=== PATIENT | male | born 1950 | race Caucasian/White ===

== ENCOUNTER 2019-02-13 11:46 | Emergency (ER) | payer OTHER ==
[2019-02-13] MEDS ORDERED: ENT KIT ONE (11:50)
[2019-02-13] MEDS ORDERED: TRANEXAMIC AC 1000 MG/10ML SDV ONE (11:50)
--- NOTE | 2019-02-13 11:51 | ER Report ---
History and Physical Time Seen By MD: 11:51 HPI/ROS CHIEF COMPLAINT: Epistaxis HISTORY OF PRESENT ILLNESS: 68-year-old male patient presents to emergency room with complaint of nosebleed. Patient states he's been getting nosebleeds every day for the past week. He states they've been getting progressively worse. He states that today he started at 8:30. He states that he went to urgent care. Initially they cauterized it. At that time he left and then start bleeding again, however seem be bleeding from both sides that time. Initially had just been bleeding from the right side. Patient denies any fevers, chills, nausea, vomiting or diarrhea. Patient states he has not felt well for the past month. States he's had low appetite, low energy. Patient denies having any cough, shortness of breath. He states he has had significant headaches. REVIEW OF SYSTEMS: Respiratory: No cough, no dyspnea. Cardiovascular: No chest pain, no palpitations. Gastrointestinal: No vomiting, no abdominal pain. Musculoskeletal: No back pain. Allergies: Coded Allergies: No Known Drug Allergies (Unverified , 02/13/19) Home Meds Active Scripts Amoxicillin/Pot Clav 875-125 Mg Tab (AUGMENTIN 875-125 TABLET) 1 Each Tablet, 1 TAB PO Q12H, #14 TAB Prov:NUVIA PARKERSSTena NG 02/13/19 Reported Medications Levothyroxine Sodium (LEVOTHYROXINE SODIUM) 50 Mcg Tablet, 50 MCG PO QDAY, TAB 02/13/19 Past Medical/Surgical History Patient has a past medical history of hyperlipidemia, nosebleeds, hypothyroidism. Patient denies any surgical history. Reviewed Nurses Notes: Yes Constitutional Vital Sign - Last 24 Hours 02/13/19 02/13/19 11:50 15:10 Temp 97.9 Pulse 51 82 Resp 16 16 B/P (MAP) 152/98 140/82 (101) Pulse Ox 94 92 O2 Delivery Room Air Room Air Physical Exam General Appearance: The patient is alert, has no immediate need for airway protection and no current signs of toxicity. ENT: Patient does have bilateral Rhino Rocket in place. There is no bleeding at this time. The posterior pharynx there is no obvious bleeding noted. Respiratory: Chest is non tender, lungs are clear to auscultation. Cardiac: regular rate and rhythm Gastrointestinal: Abdomen is soft and non tender, no masses, bowel sounds normal. Musculoskeletal: Neck: Neck is supple and non tender. Extremities have full range of motion and are non tender. Skin: No rashes or lesions. DIFFERENTIAL DIAGNOSIS: After history and physical exam differential diagnosis was considered for epistaxis Medical Decision Making Data Points Result Diagram: 02/13/19 1215 02/13/19 1215 Laboratory Hematology Test 02/13/19 12:15 Red Blood Count 5.49 M/uL (4.00-5.60) Mean Corpuscular Volume 86.6 fL (80.0-96.0) Mean Corpuscular Hemoglobin 29.4 pg (26.0-33.0) Mean Corpuscular Hemoglobin Concent 33.9 g/dL (32.0-36.0) Red Cell Distribution Width 12.9 % (11.5-14.5) Mean Platelet Volume 7.4 fL (7.2-11.1) Neutrophils (%) (Auto) 62.4 % (39.4-72.5) Lymphocytes (%) (Auto) 25.7 % (17.6-49.6) Monocytes (%) (Auto) 7.5 % (4.1-12.4) Eosinophils (%) (Auto) 3.3 % (0.4-6.7) Basophils (%) (Auto) 1.1 % (0.3-1.4) Nucleated RBC Relative Count (auto) 0.0 /100WBC Neutrophils # (Auto) 4.7 K/uL (2.0-7.4) Lymphocytes # (Auto) 1.9 K/uL (1.3-3.6) Monocytes # (Auto) 0.6 K/uL (0.3-1.0) Eosinophils # (Auto) 0.2 K/uL (0.0-0.5) Basophils # (Auto) 0.1 K/uL (0.0-0.1) Nucleated RBC Absolute Count (auto) 0.00 K/uL Prothrombin Time 12.5 seconds (12.0-14.4) Prothromb Time International Ratio 0.94 Activated Partial Thromboplast Time 31 seconds (23-35) Sodium Level 139 mmol/L (137-145) Potassium Level 4.3 mmol/L (3.5-5.0) Chloride Level 107 mmol/L (98-107) Carbon Dioxide Level 22 mmol/L (22-30) Blood Urea Nitrogen 25 mg/dl (9-21) Creatinine 1.10 mg/dl (0.66-1.25) Glomerular Filtration Rate Calc > 60.0 Random Glucose 104 mg/dl (75-110) Calcium Level 9.5 mg/dl (8.4-10.2) Total Bilirubin 0.5 mg/dl (0.2-1.3) Aspartate Amino Transf (AST/SGOT) 38 U/L (0-35) Alanine Aminotransferase (ALT/SGPT) 23 U/L (0-56) Alkaline Phosphatase 52 U/L (0-126) Total Protein 7.1 g/dl (6.3-8.2) Albumin 4.4 g/dl (3.5-5.0) Chemistry Test 02/13/19 12:15 White Blood Count 7.5 k/uL (4.5-11.0) Red Blood Count 5.49 M/uL (4.00-5.60) Hemoglobin 16.1 g/dL (14.0-18.0) Hematocrit 47.6 % (42.0-52.0) Mean Corpuscular Volume 86.6 fL (80.0-96.0) Mean Corpuscular Hemoglobin 29.4 pg (26.0-33.0) Mean Corpuscular Hemoglobin Concent 33.9 g/dL (32.0-36.0) Red Cell Distribution Width 12.9 % (11.5-14.5) Platelet Count 263 K/uL (150-450) Mean Platelet Volume 7.4 fL (7.2-11.1) Neutrophils (%) (Auto) 62.4 % (39.4-72.5) Lymphocytes (%) (Auto) 25.7 % (17.6-49.6) Monocytes (%) (Auto) 7.5 % (4.1-12.4) Eosinophils (%) (Auto) 3.3 % (0.4-6.7) Basophils (%) (Auto) 1.1 % (0.3-1.4) Nucleated RBC Relative Count (auto) 0.0 /100WBC Neutrophils # (Auto) 4.7 K/uL (2.0-7.4) Lymphocytes # (Auto) 1.9 K/uL (1.3-3.6) Monocytes # (Auto) 0.6 K/uL (0.3-1.0) Eosinophils # (Auto) 0.2 K/uL (0.0-0.5) Basophils # (Auto) 0.1 K/uL (0.0-0.1) Nucleated RBC Absolute Count (auto) 0.00 K/uL Prothrombin Time 12.5 seconds (12.0-14.4) Prothromb Time International Ratio 0.94 Activated Partial Thromboplast Time 31 seconds (23-35) Glomerular Filtration Rate Calc > 60.0 Calcium Level 9.5 mg/dl (8.4-10.2) Total Bilirubin 0.5 mg/dl (0.2-1.3) Aspartate Amino Transf (AST/SGOT) 38 U/L (0-35) Alanine Aminotransferase (ALT/SGPT) 23 U/L (0-56) Alkaline Phosphatase 52 U/L (0-126) Total Protein 7.1 g/dl (6.3-8.2) Albumin 4.4 g/dl (3.5-5.0) Coagulation Test 02/13/19 12:15 Prothrombin Time 12.5 seconds Prothromb Time International Ratio 0.94 Activated Partial Thromboplast Time 31 seconds ED Course/Re-evaluation ED Course Patient is admitted to an exam room, history and physical were obtained. Differential diagnoses were considered. On examination patient had no active bleeding at this time. He did have very small amounts of continued drainage. An IV was started, a CBC, CMP, PT and PTT were done. The lab results were unremarkable. I discussed the case with Dr. Duran as he was in between surgical cases. His recommendation was to leave the packing in until Saturday, follow-up with his office at that time him they would remove the packing. I discussed this with Dr. Duran's nurse, Kezia, who stated that the physician regulatory assistant was working with Dr. Duran will not be until the afternoon so patient can be seen at 1:00 on Saturday. I discussed this with the patient and his and they verbalized understanding and agreement with plan. Due to patient feeling off for the past several months, and the bloody noses. I do have concerns about possible sinusitis. Since we have to treat the patient with antibiotics for the packing over the weekend I did opt to go with Augmentin. I discussed this with Dr. Duran who verbalized agreement. Patient will be discharged home at this time. Decision to Disposition Date: February 13, 2019 Decision to Disposition Time: 13:10 Depart Departure Latest Vital Signs Vital Signs Date Time Temp Pulse Resp B/P (MAP) Pulse Ox O2 Delivery O2 Flow Rate FiO2 02/13/19 15:10 82 16 140/82 (101) 92 Room Air 02/13/19 11:50 97.9 Impression: Primary Impression: Epistaxis Condition: Improved Disposition: HOME OR SELF-CARE New Scripts Amoxicillin/Pot Clav 875-125 Mg Tab (AUGMENTIN 875-125 TABLET) 1 Each Tablet 1 TAB PO Q12H, #14 TAB Prov: GILDARDO PARKER 02/13/19 Patient Instructions: Nosebleed (ED) Additional Instructions: Increase fluid intake. Get plenty of rest. Follow up with Dr. Duran's PA Marina Castellanos, Saturday at 1:00 PM Leave the packing in place. If the bleed restarts or the packing falls out and you are bleeding come back to the ER as we have discussed. Continue with normal medications. GILDARDO PARKER February 13, 2019 11:51
[2019-02-13] MEDS ORDERED: LEVO50TA86 PO (12:04)
[2019-02-13 12:28] LABS: PLATELET COUNT, AUTOMATED 263 K/uL (150-450)
[2019-02-13 12:33] LABS: INR 0.94
[2019-02-13] MEDS ORDERED: AMOX-559 PO (13:07)
[2019-02-13 15:10] VITALS: BP 140/82
[2019-02-16] MEDS ORDERED: MUPI22OI28 TP (14:19)
== END 2019-02-13 13:29 | disposition home or self-care (01) ==
LOC: ER 12:08
DX: R04.0 Epistaxis (principal)
CPT/HCPCS: 82040; 82247; 82310; 82374; 82435; 82565; 82947; 84075; 84132; 84155; 84295; 84450; 84460; 84520; 85025; 85610; 85730; 99282

== ENCOUNTER 2019-03-26 00:11 | Day surgery (SDC) | payer OTHER ==
[~2019-03-26] VITALS: Ht 185.4 cm; Wt 93.9 kg
[~2019-03-26 00:11] MED LIST: AMOX-559 PO; LEVO50TA86 PO; MUPI22OI28 TP
[2019-03-26] MEDS ORDERED: PROPOFOL EMUL(*) 10MG/ML 20 ML 60 ML ONE (06:57)
[2019-03-26] MEDS ORDERED: LIDOCAINE MPF 1% 5 ML VIAL ONE (06:57)
[2019-03-26] MEDS ORDERED: LIDOCAINE/SOD BICARB 8.4% SYR ID ONE (07:55)
[2019-03-26] MEDS ORDERED: NORMOSOL R SOLN(*) 1000 ML BAG 1,000 ML IV PRN (07:55)
[2019-03-26 08:42] VITALS: BP 108/71
[2019-03-26 10:21] VITALS: BP 82/44
[2019-03-26 10:43] VITALS: BP 92/48
[2019-03-26 11:00] VITALS: BP 111/71
[2019-03-26 11:01] VITALS: BP 109/73
== END 2019-03-26 11:10 | disposition home or self-care (01) ==
LOC: OR 00:11
PROVIDERS: ATTEND Family Medicine
DX: Z12.11 Encounter for screening for malignant neoplasm of colon (principal); E78.5 Hyperlipidemia, unspecified; E03.9 Hypothyroidism, unspecified
CPT/HCPCS: 00811; 45385; 88305; J2001; J2704